=== PATIENT | female | born 1995 | race Caucasian/White ===

== ENCOUNTER 2020-05-30 21:48 | Inpatient (IN) ==
--- NOTE | 2020-05-30 23:11 | Anesthesiology Consultation ---
Date of Service May 30, 2020 Assessment & Plan (1) Encounter for pre-operative examination: Chart Review Chart Review: Acceptable Risk for Surgery and Patient NOT seen in Pre Admission Testing Consults Requested none History Surgery Operation Date: 05/30/20 23:30 Proposed Procedures p Section in LD - Danyelle Owen MD Height/Weight Height: 5 ft 6 in Weight: 89.811 kg Allergies Allergy/AdvReac Type Severity Reaction Status Date / Time No Known Allergies Allergy Verified 05/29/20 11:15 Medications Home Medications Medication Instructions Recorded Confirmed Last Taken prenat.vits,river,wsu-afnm-llwni 1 tab PO DAILY 11/12/19 05/30/20 05/30/20 07:00 levothyroxine 50 mcg tablet 50 mcg PO DAILY #30 tab 02/15/20 05/30/20 05/30/20 07:00 Past Medical History Medical History Abnormal Pap smear of cervix Hx of migraines Varicella vaccine Past Family History Family History Aunt Diabetes Family/Other Diabetes Grandmother (Paternal) Breast cancer Denies family history of Colon cancer Ovarian cancer Prostate cancer Myocardial infarction Past Surgical History Surgical History History of facial surgery Social History Smoking Status: Never smoker Hx Alcohol Use: No Hx Substance Use: No Physical Exam Vital Signs Last Vital Signs Temp 36.7 C 05/30/20 22:10 Pulse 87 05/30/20 22:03 Resp 18 05/30/20 22:10 BP 128/86 05/30/20 22:03
--- NOTE | 2020-05-30 23:14 | History & Physical Report ---
Date of Service May 30, 2020 Assessment & Plan (1) Breech presentation: 25 y/o G1 at 39 6/7 wga presenting with SROM and breech presentation -VSS -Fetus cat 1 -Breech presentation - was previously cephalic, discussed CS given malpresentation and SROM. -Discussed indications, risks, benefits, alternatives with risks including infection, bleeding, injury to adjacent structures (bowel, bladder, ureters, blood vessels, nerves, baby), possible need for blood transfusion and/or life saving hysterectomy, VTE. Consent reviewed in detail w/ pt and signed after all questions answered to her satisfaction. Anesthesia and peds team made aware. Rapid covid swab obtained History of Present Illness Chief Complaint: LOF Primary Care Provider: Ochoa Weaver, DO 25 y/o G1 at 39 6/7 wga w/ JORDIN 05/31 by LMP 08/24 who presents w/ c/o intermittent LOF. Had feeling of small amount of leaking, unsure if urine or water broke. Went to the bathroom and again had further leaking, this happened 4 more time and so presented for evaluation. +FM; rare ctx, no VB just dark bloody tinged mucous discharge after membrane sweep. 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 Hx: G1 Menarche 12 regular 28-30 day cycles Last pap 2018 neg cytology, hx abnl pap and +HPV, never needed colpo denies hx STI Allergies Allergy/AdvReac Type Severity Reaction Status Date / Time No Known Allergies Allergy Verified 05/29/20 11:15 Home Medications Medication Instructions Recorded Confirmed Type prenat.vits,river,hth-blid-lzcpu 1 tab PO DAILY 11/12/19 05/30/20 History levothyroxine 50 mcg tablet 50 mcg PO DAILY #30 tab 02/15/20 05/30/20 Rx Patient History Medical History Abnormal Pap smear of cervix Hx of migraines Varicella vaccine Surgical History History of facial surgery Family History Aunt Diabetes Family/Other Diabetes Grandmother (Paternal) Breast cancer Denies family history of Colon cancer Ovarian cancer Prostate cancer Myocardial infarction Social History Smoking Status: Never smoker Second Hand Exposure: No; Hx Alcohol Use: No Hx Substance Use: No Preferred Language: Dominican Communication Ability: Effective Visual Impairment: No Limitations Hearing Ability: Normal Tree Inspector Required: No Beliefs That Will Affect Care: None marital status: marital status details: Papa Jaeger (25) [phone] Current Living Situation: Spouse Current Living Situation Comment: lives with spouse, 3 dogs current occupational status: employed current occupation: [employer]- [employer] Other Information That Helps Us Care for You: No Feels Safe at Home: Yes Safety Concerns: Feels Safe At This Time Dental Care, Regularly: Yes Physical Activity Frequency: Does not Exercise Assistive Devices: None Physical Exam Constitutional: WD/WN, vitals as above Respiratory: normal respiratory effort; no respiratory distress and no labored breathing Genitourinary: OB Exam Abdomen: + breech (on SVE, confirmed by BSUS) Manual OB Exam: + cervical dilation 1 cm, + cervical effacement 50%, + station -2 and + amniotic fluid (+nitrazine, pooling, ferning) OB Exam Monitor Tracing: + external FHT monitor used, + external uterine monitor used (q6) and + category I (135/mod/+accel/-decel) Results & Data ([facility]) Vital Signs (Past 12 Hours) Vital Signs Temp Pulse Resp BP 05/30/20 22:10 98.1 F 18 05/30/20 22:03 87 128/86 Laboratory Results Initial OB Labs 10/25/19 Blood Type & RH - A postitive Antibody Screen negative HCT/HGB 37.3/12.4 Platelets 190 Pap Test --12/21 nl Chlamydia-negative Gonorrhea-negative Rubella- immune RPR-negative Urine Culture/Screen-negative HBsAg- non reactive HIV- non reactive MCV 89.2 UDS- negative hep c neg nonimmune to measles neg cf/sma--[facility] low risk panorama--[facility] 16 wee gtt 127 28 week gtt 121 GBS neg Diagnostic Findings Posterior placenta Code Status & VTE Plan VTE Prophylaxis Plan VTE Prophylaxis will be ordered: Yes Coding Level of Care Code None Diagnoses Breech presentation O32.1XX0
[2020-05-30] MEDS ORDERED: LACTATED RINGER'S 1,000 ML IV SCH (23:15)
[2020-05-30] MEDS ORDERED: CITRIC ACID/SODIUM CITRATE 15 ML UDC PO STA (23:15)
[2020-05-30] MEDS ORDERED: ceFAZolin 2000MG 2,000 MG/15 ML SYR IV STA (23:16)
[2020-05-30] MEDS ORDERED: MoRPHine SULFATE PF 1 MG/ML 10 ML AMP/VIAL ONE (23:17)
[2020-05-30] MEDS ORDERED: OXYTOCIN 10 UNITS/ML VIAL ONE (23:17)
[2020-05-30] MEDS ORDERED: ONDANSETRON INJ 2 MG/ML 2 ML VIAL ONE (23:17)
[2020-05-30] MEDS ORDERED: SODIUM CHLORIDE 0.9% INJ 10 ML VIAL ONE (23:17)
[2020-05-30] MEDS ORDERED: fentaNYL citrate 100 MCG/2 ML VIAL ONE (23:18)
[2020-05-30 23:25] LABS: Basophils # (auto) 0.01 K/uL (0-0.2); Basophils % (auto) 0.1 %; Eosinophils # (auto) 0.01 K/uL (0-0.5); Eosinophils % (auto) 0.1 %; Hematocrit (blood only) 32.4 % (37-47); Hemoglobin 11.1 g/dL (12.0-16.0); Immature Granulocytes # (auto) 0.03 K/uL (0.00-0.02); Immature Granulocytes % (auto) 0.2 %; Lymphocytes # (auto) 2.47 K/uL (1.2-3.4); Lymphocytes % (auto) 20.5 %; Mean Corpuscular Hemoglobin 30.2 pg (25-34); Mean Corpuscular Hgb Conc 34.3 g/dL (32-36); Mean Corpuscular Volume 88.3 fL (80-100); Mean Platelet Volume 11.9 fL (7.4-10.4); Monocytes # (auto) 0.75 K/uL (0.11-0.59); Monocytes % (auto) 6.2 %; Neutrophils # (auto) 8.77 K/uL (1.4-6.5); Neutrophils % (auto) 72.9 %; Platelet Count 162 K/uL (130-400); RDW Coefficient of Variation 13.9 % (11.5-14.5); RDW Standard Deviation 45.3 fL (36.4-46.3); Red Blood Count 3.67 M/uL (4.2-5.4); White Blood Count 12.04 K/uL (4.8-10.8)
[2020-05-30] MEDS ORDERED: ACETAMINOPHEN 1000 MG/100 ML IV IV PRN (23:52)
[2020-05-31] MEDS ORDERED: ONDANSETRON INJ 2 MG/ML 2 ML VIAL IV PRN ×2 (00:40→18:40)
[2020-05-31] MEDS ORDERED: NALOXONE HCL 0.4 MG/1 ML VIAL/CARP IV PRN (00:40)
[2020-05-31] MEDS ORDERED: HYDROmorphone INJ 0.5 MG/0.5 ML SYR IV PRN (00:40)
[2020-05-31] MEDS ORDERED: ePHEDrine sulfate 50 MG/ML AMP IV PRN (00:40)
[2020-05-31] MEDS ORDERED: MoRPHine SULFATE PF 1 MG/ML 10 ML AMP/VIAL INT SPINAL ONE (00:40)
[2020-05-31] MEDS ORDERED: KETOROLAC 30 MG/ML VIAL IV PRN ×2 (00:40→18:40)
[2020-05-31] MEDS ORDERED: PROMETHAZINE HCL 25 MG in SODIUM CHLORIDE 0.9% 50 ML IV PRN ×2 (00:40→18:40)
[2020-05-31] MEDS ORDERED: NALOXONE HCL 0.08 MG in SYRINGE 1.8 ML IV PRN (00:40)
[2020-05-31] MEDS ORDERED: LACTATED RINGER'S 500 ML IV PRN (00:40)
[2020-05-31] MEDS ORDERED: NALOXONE HCL 1 MG in SODIUM CHLORIDE 0.9% 1000ML 1,000 ML IV PRN (00:40)
[2020-05-31] MEDS ORDERED: diphenhydrAMINE 50 MG/ML VIAL IV PRN ×2 (00:40→18:40)
[2020-05-31] MEDS ORDERED: NO NARCOTICS OR SEDATIVES SCH (00:45)
[2020-05-31] MEDS ORDERED: DC INTRASPINAL MORPHINE SCH (00:45)
[2020-05-31] MEDS ORDERED: SODIUM CHLORIDE 0.9% 1000ML 1,000 ML IV SCH (00:45)
[2020-05-31] MEDS ORDERED: KETOROLAC 30 MG/ML VIAL ONE (01:26)
[2020-05-31] MEDS ORDERED: diphenhydrAMINE 50 MG/ML VIAL ONE (01:41)
[2020-05-31 02:03] LABS: Base Excess Cord Arterial Bld -0.1 mEq/L (-9-1.8); CO2 Cord Arterial Blood 68 mmHg (39.1-73.5); HCO3 Cord Arterial Blood 29 mmol/L (19.7-28.5); PO2 Cord Arterial Blood 19 mmHg (4.1-31.7); pH Cord Arterial Blood 7.25 (7.1-7.38)
[2020-05-31 02:04] LABS: Base Excess Cord Venous Blood -1.7 mEq/L (-7.7-1.9); Cord Venous Blood HCO3 28 mmol/L (18.4-26.8); Cord Venous Blood PCO2 68 mmHg (30.4-57.2); Cord Venous Blood PO2 26 mmHg (14.1-43.3); Cord Venous Blood pH 7.23 (7.20-7.44); Oxygen Sat Cord Arterial Blood < 60.0 % (<60)
[2020-05-31 02:06] LABS: O2 Saturation Cord Venous Bld < 60.0 % (<68)
--- NOTE | 2020-05-31 02:52 | Post Operative Brief Note ---
PG Immediate Post Op with CF Date of Surgery May 31, 2020 Pre & Post Diagnosis Operation Date: 05/30/20 23:30 Pre-Op Diagnosis: 1. Single IUP at 40 weeks gestation 2. SROM 3. Breech Presentation Post-Op Diagnosis: same as pre op diagnosis Delivered live female child at 0117 I identified the patient and participated in the time-out.: Yes Procedure Operation Date: 05/30/20 23:30 Actual Procedures p Primary Low Transverse Section in LD(Not Applicable) - Danyelle Owen MD Surgeon Danyelle Owen MD Pyrotechnic Mixer SINDY Mcdaniels Estimated Blood Loss 800 Findings Consistent with Post-Op Diagnosis Normal appearing uterus, bilateral fallopian tubes, and ovaries. Left extension noted on the hysterotomy. Everette applied prior to closure. Viable female infant weighing 7lbs 10oz w/ APGARS of 8 and 9 at 1 and 5 minutes, respectively. Fluids 800cc crystalloid 700cc UOP clear urine Specimens Specimen Description: placenta-hold cord gases cord blood Drains Cash Catheter (inserted after spinal block without difficulty) Anesthesia Type Spinal Complications none
--- NOTE | 2020-05-31 02:55 | Anesthesiology Progress Note ---
Date of Service May 31, 2020 Anesthesia Post Procedure Vital Signs Vital Signs: Temp Pulse Resp BP Pulse Ox 05/31/20 02:54 69 100 05/31/20 02:51 67 93/52 L 05/31/20 02:49 68 98 05/31/20 02:44 67 99 05/31/20 02:41 75 94 05/31/20 02:40 68 111/62 05/31/20 02:39 74 100 05/30/20 22:10 36.7 C 18 05/30/20 22:03 87 128/86 Transfer of Care Handoff Completed per policy Notes Mental Status: alert / awake / arousable and participated in evaluation Nausea / Vomiting: adequately controlled Pain: adequately controlled Airway Patency, RR, SpO2: stable & adequate BP & HR: stable & adequate Hydration State: stable & adequate Neuraxial Anesthesia: was administered and sensory block is resolving Anesthetic Complications: no major complications apparent and Pt Satisfied with anesthetic care
--- NOTE | 2020-05-31 03:03 | Operative Report ---
PG Post Operative Report Pre & Post Diagnosis Operation Date: 05/30/20 23:30 Pre-Op Diagnosis: 1. Single IUP at 40 weeks gestation 2. SROM 3. Breech Presentation Post-Op Diagnosis: same as pre op diagnosis Delivered live female child at 0117 I identified the patient and participated in the time-out.: Yes Procedure Operation Date: 05/30/20 23:30 Actual Procedures p Primary Low Transverse Section in LD(Not Applicable) - Danyelle Owen MD Surgeon Danyelle Owen MD Cigar Head Puncher SINDY Mcdaniels Estimated Blood Loss 800 Findings Consistent with Post-Op Diagnosis Normal appearing uterus, bilateral fallopian tubes, and ovaries. Left extension noted on the hysterotomy, Everette applied prior to closure. Viable female weighing 7lbs 10oz w/ APGARS of 8 and 9 at 1 and 5 minutes, respectively Fluids 800cc crystalloid 700cc UOP clear urine Specimens placenta-hold cord gases cord blood Drains Cash draining clear urine Anesthesia Type Spinal Complications none Disposition Accompanied Patient To Recovery: Yes Disposition: L&D Indications 25 y/o G1 at 39 6/7 wga w/ JORDIN 05/31 by LMP 08/24 who presents w/ c/o intermittent LOF. She was found to have undergone spontaneous rupture of membranes. On SVE, she was 1.5/50/-2 however presenting part was not felt to be cephalic. BSUS confirmed breech positioning. She was counseled regarding need for delivery due to malpresentation and was in agreement with plan. Consent was extensively reviewed with patient and signed after all questions answered. Breech presentation was again confirmed prior to going to OR. Category 1 tracing was obtained on admission. Description of Procedure The patient was taken to the operating room after consents were ensured. The patient was properly identified. Spinal anesthesia was obtained without difficulty. The patient was placed in a dorsal supine position with left lateral tilt, then prepped and draped in normal sterile fashion. Surgical time out was performed. Antibiotics were given for prophylaxis. Anesthesia was tested to ensure adequate surgical levels. Pfannenstiel skin incision was performed and carried down to the underlying fascia with a knife. The fascia was then nicked in the midline and extended laterally with pickfarida and Olson scissors. Superior portion of the fascia was grasped with Kochers x2 and elevated off the underlying rectus muscles using blunt dissection. Inferior portion of the fascia was then grasped with Padma clamps x2 and also elevated off the underlying muscles with blunt dissection. Midline was identified. The peritoneum was then entered and extended to provide adequate room for delivery of baby. A hand was inserted into the abdomen, uterus was noted to be clear of adhesions. Bladder blade was inserted, bladder flap was created in the usual fashion. A low transverse uterine incision was made in the uterus and extended bluntly in a superior to inferior fashion. breech was grasped and elevated through the hysterotomy in an atraumatic fashion. hips were swept through and delivered atraumatically using the pinard maneuver. Moist blue towel was wrapped around the torso and delivered to the level of the scapula. Right and left arms were swept across the chest to deliver and aftercoming head subsequently delivered spontaneously and without difficulty. Nose and mouth were bulb suctioned on the surgical field. Delayed cord clamping x 30 seconds. The cord was double clamped and cut, baby was handed off to awaiting pediatrics staff. Cord segment and blood were obtained. Placenta was then expressed from the uterus. The uterus was exteriorized. Several passes were made inside the uterus to remove the remaining membranes. Attention was then turned to the hysterotomy where a left sided extension was noted going inferiorly, which was then closed with a running locked suture of 0 Vicryl on a CTX needle in two segments and incorporated together. An imbricating layer was then performed using 0-Monocryl. Areas of continued bleeding around the hysterotomy were made hemostatic with figure of eight stitches using 0-Monocryl. There was noted to be good hemostasis. The posterior cul-de-sac was then inspected and cleaned of clot and debris. The hysterotomy was again inspected and noted to be hemostatic. The uterus was returned to the abdomen. The right and left pericolic gutters were cleaned of all clot and debris. The hysterotomy was again noted to be hemostatic. Space of Retzius was noted to be hemostatic. Everette was applied to the hysterotomy. The fascia was then closed with a running suture of 0 Vicryl on a CT1 needle. Subcutaneous tissue was copiously irrigated and noted to be hemostatic. Subcutaneous tissue was re-approximated using 2-0 plain gut. The skin was then closed with a running suture of 3-0 Monocryl in a subcuticular fashion from each end and tied in the middle. At termination of the procedure, the fundal pressure was applied and a moderate amount of lochia was expressed. Pressure dressing was applied to the patient. She tolerated the procedure well. All sponge, needle, instrument counts were correct x 2. I attest to the content of the Intraoperative Record and any orders documented therein. Any exceptions are noted below. OB Procedure charges OB Charges 00828 C/S
[2020-05-31] MEDS ORDERED: MAGNESIUM HYDROXIDE SUSP 30 ML UDC PO PRN (03:05)
[2020-05-31] MEDS ORDERED: LACTATED RINGER'S 1,000 ML IV SCH (03:05)
[2020-05-31] MEDS ORDERED: BENZOCAINE 20% AER SPR 82.5 GM CAN EXT PRN (03:05)
[2020-05-31] MEDS ORDERED: SUPERCREAM 0.870% 15 GM JAR EXT PRN (03:05)
[2020-05-31] MEDS ORDERED: HYDROCORTISONE ACETATE 25 MG SUPP PR PRN (03:05)
[2020-05-31] MEDS ORDERED: DIPHTHERIA/TETANUS/PERTUSSIS 0.5 ML SYR/VIAL IM ONE (03:05)
[2020-05-31] MEDS ORDERED: SENNA 8.6 MG TAB PO PRN (03:05)
[2020-05-31] MEDS ORDERED: MEASLES, MUMPS & RUBELLA VIRUS VIAL SQ ONE (03:05)
[2020-05-31] MEDS ORDERED: OXYTOCIN 20 UNITS in LACTATED RINGER'S 1,000 ML IV SCH (03:05)
[2020-05-31] MEDS: LEVOTHYROXINE SODIUM 50 MCG TABLET PO SCH (06:41)
[2020-05-31] MEDS: FERROUS SULFATE 325 MG TAB PO SCH (08:36)
[2020-05-31] MEDS: PRENATAL VITAMIN 1 TAB PO SCH (08:36)
[2020-05-31] MEDS: DOCUSATE SODIUM 100 MG CAP PO SCH ×2 (08:36→20:13)
[2020-05-31] MEDS: SIMETHICONE 80 MG CHEW PO SCH ×4 (08:36→20:13)
--- NOTE | 2020-05-31 12:18 | Anesthesiology Progress Note ---
Date of Service May 31, 2020 Anesthesia Post Procedure Vital Signs Vital Signs: Temp Pulse Pulse Resp BP BP Pulse Ox 05/31/20 12:00 18 95 05/31/20 11:15 18 95 05/31/20 10:15 18 96 05/31/20 09:15 18 98 05/31/20 08:15 18 99 05/31/20 07:42 37.4 C 88 18 107/69 99 05/31/20 07:15 18 98 05/31/20 06:30 18 98 05/31/20 05:30 16 98 05/31/20 05:24 75 99 05/31/20 05:20 36.5 C 76 16 117/75 98 05/31/20 05:19 77 99 05/31/20 05:14 77 99 05/31/20 05:11 75 114/71 05/31/20 05:09 78 99 05/31/20 05:04 77 99 05/31/20 05:00 37.0 C 18 05/31/20 04:59 80 99 05/31/20 04:54 90 99 05/31/20 04:49 79 97 05/31/20 04:44 78 99 05/31/20 04:40 81 121/67 05/31/20 04:39 74 96 05/31/20 04:34 74 99 05/31/20 04:30 18 99 05/31/20 04:29 76 115/73 98 05/31/20 04:24 73 99 05/31/20 04:19 74 111/72 96 05/31/20 04:14 68 99 05/31/20 04:11 18 05/31/20 04:09 67 110/78 99 05/31/20 04:05 69 90 05/31/20 04:04 71 97 05/31/20 03:59 66 108/65 99 05/31/20 03:55 18 05/31/20 03:54 70 98 05/31/20 03:49 71 100 05/31/20 03:45 18 05/31/20 03:44 74 100 05/31/20 03:39 77 119/62 100 05/31/20 03:35 18 05/31/20 03:34 73 97 05/31/20 03:33 63 105/68 05/31/20 03:30 18 05/31/20 03:29 70 99 05/31/20 03:25 18 05/31/20 03:24 67 100 05/31/20 03:23 68 94 05/31/20 03:19 69 114/66 99 05/31/20 03:15 18 100 05/31/20 03:14 68 100 05/31/20 03:13 65 118/75 05/31/20 03:09 67 100 05/31/20 03:05 18 100 05/31/20 03:04 72 100 05/31/20 03:01 70 140/60 05/31/20 02:59 79 91 05/31/20 02:55 18 100 05/31/20 02:54 69 100 05/31/20 02:51 67 93/52 L 05/31/20 02:49 68 98 05/31/20 02:45 18 100 05/31/20 02:44 67 99 05/31/20 02:41 75 94 05/31/20 02:40 68 111/62 05/31/20 02:39 74 100 05/31/20 02:37 36.4 C L 18 100 05/30/20 22:10 36.7 C 18 05/30/20 22:03 87 128/86 Notes Mental Status: alert / awake / arousable Patient Amnestic to Procedure: Yes Nausea / Vomiting: adequately controlled Pain: adequately controlled Airway Patency, RR, SpO2: stable & adequate BP & HR: stable & adequate Hydration State: stable & adequate Anesthetic Complications: no major complications apparent and Pt Satisfied with anesthetic care
[2020-05-31] MEDS ORDERED: diphenhydrAMINE Capsule 25 MG CAP PO PRN (18:40)
[2020-05-31] MEDS: IBUPROFEN 600 MG TAB PO PRN (20:13)
[2020-05-31] MEDS: oxyCODONE/ACETAMINOPHEN 5mg/325mg TAB PO PRN (20:14)
[2020-06-01] MEDS: IBUPROFEN 600 MG TAB PO PRN ×4 (01:57→21:19)
[2020-06-01] MEDS: oxyCODONE/ACETAMINOPHEN 5mg/325mg TAB PO PRN ×2 (01:57→14:40)
[2020-06-01] MEDS: LEVOTHYROXINE SODIUM 50 MCG TABLET PO SCH (06:12)
[2020-06-01 06:33] LABS: Basophils # (auto) 0.01 K/uL (0-0.2); Basophils % (auto) 0.1 %; Eosinophils # (auto) 0.04 K/uL (0-0.5); Eosinophils % (auto) 0.4 %; Hematocrit (blood only) 26.8 % (37-47); Hemoglobin 9.1 g/dL (12.0-16.0); Immature Granulocytes # (auto) 0.03 K/uL (0.00-0.02); Immature Granulocytes % (auto) 0.3 %; Lymphocytes # (auto) 1.95 K/uL (1.2-3.4); Mean Corpuscular Hemoglobin 30.3 pg (25-34); Mean Corpuscular Volume 89.3 fL (80-100); Mean Platelet Volume 11.5 fL (7.4-10.4); Monocytes # (auto) 0.71 K/uL (0.11-0.59); Monocytes % (auto) 6.5 %; Neutrophils % (auto) 74.7 %; Platelet Count 121 K/uL (130-400); RDW Coefficient of Variation 14.1 % (11.5-14.5); RDW Standard Deviation 46.6 fL (36.4-46.3); White Blood Count 10.84 K/uL (4.8-10.8)
[2020-06-01] MEDS: DOCUSATE SODIUM 100 MG CAP PO SCH ×2 (08:56→21:20)
[2020-06-01] MEDS: FERROUS SULFATE 325 MG TAB PO SCH (08:56)
[2020-06-01] MEDS: PRENATAL VITAMIN 1 TAB PO SCH (08:56)
[2020-06-01] MEDS: SIMETHICONE 80 MG CHEW PO SCH ×4 (08:57→21:20)
--- NOTE | 2020-06-01 09:19 | Obstetrical Progress Note ---
Date of Service June 01, 2020 Assessment & Plan (1) Breech presentation: Patient is POD#1 from C/S for breech presentation and recovering normally from a surgical standpoint. Discussed today feelings of sadness about the delivery not being what she had planned, and difficulty adjusting to her current reality. She was hoping for natural vaginal delivery, had a vertex baby and underwent membrane stripping with hopes of going into labor; an uncomfortable episode the night after her membranes were stripped could correlate with baby repositioning, as when the patient came to L&D she had to undergo for breech - which was not what she had mentally prepared for. She is glad that baby is healthy, and she is not having issues with unmanaged pain or surgical complications, but is describing some sense of loss of control and some detachment. Validated her feelings of frustration, discussed baby blues, the normal challenges of new motherhood plus surgical recovery, and warning signs of depression and/or psychosis for which she is higher risk given her current feelings. She currently has no SI/HI and has a good social support system and good insight about her mental state. Reminded her of availability of care through our office should any concerns about mood arise after her eventual discharge from the hospital. Subjective Ambulation: ambulating normally Voiding: no voiding problems Passing Gas:: Yes Diet Tolerance:: regular diet Lochia:: Small Feeding Type:: breast feeding Physical Exam Constitutional WD/WN, vitals as above Eyes PERRL, conjunctivae normal, anicteric sclerae Neck normal visual inspection Respiratory normal respiratory effort and able to speak in complete sentences; no respiratory distress and no labored breathing Cardiovascular Rate/Rhythm: regular rate and regular rhythm Extremities: no edema Chest (Breasts) Chest: normal inspection of chest Gastrointestinal (Abdomen) Inspection/Auscultation: abdomen normal to inspection and + abdominal surgical incision (c/d/i) Soft, postgravid Psychiatric A+Ox3, euthymic affect Genitourinary OB Exam Abdomen: + fundal height Fundus: + firm and + relation to umbilicus (fundus just below umbilicus); not tender Results & Data ([facility]) Vital Signs (Past 12 Hours) Vital Signs Temp Pulse Resp BP Pulse Ox 05/31/20 23:45 98.8 F 86 16 115/72 96
[2020-06-01] MEDS ORDERED: bisacodyL 5 MG TABEC PO SCH (20:00)
[2020-06-02] MEDS ORDERED: bisacodyL 10 MG SUPP PR PRN (02:46)
[2020-06-02] MEDS: IBUPROFEN 600 MG TAB PO PRN ×3 (03:51→14:50)
--- NOTE | 2020-06-02 05:13 | Obstetrical Progress Note ---
Date of Service June 02, 2020 Assessment & Plan (1) : S/p LTCS for breech presentation, Day 2 - Feels well today. Eating well, voiding well, ambulating well. - Pain well-controlled with ibuprofen 600mg Q4H PRN. - Vital signs reviewed and WNL. - Hemoglobin reviewed. 11.1 --> 9.1 --> 9.0 (today). - Blood Type: A+, antibody negative, GBS negative, Rubella Immune, COVID-19 negative - Continue routine post-op care: encourage ambulation, monitor and control pain with Motrin PRN, continue regular OB diet, monitor lochia - Encourage breast feeding. - Pt counselled on discharge instructions - After discharge, will have 6-wk follow-up with Owen Admission and Anticipated Discharge Date Admission Date: May 30, 2020 Supervising Physician Co-Signing Physician Notes Resident Physician Supervision Note: I interviewed and examined the patient. Discussed with Dr. Jean and agree with findings and plan as documented in the note. Any exceptions or clarifications are listed here: Patient mood markedly improved this morning; she is smiling, successfully when I entered the room, and reports feeling much better physically and emotionally now that she has gotten a good night of sleep. Documented By: Bibi Ortiz MD, FACOG Subjective HPI Debbie Jaeger is a 25 y/o female who is POD #2 following delivery for breech presentation at 40 weeks. She reports feeling well overall this morning. mild abdominal cramping and 0-2/10 pain well managed on analgesics. Voiding. Tolerating meals overnight without difficulty. Patient has been able to ambulate some. passing gas and had bowel movement. Has persistent lochia with some improvement this morning. Currently . Review of Systems Review of Systems: ROS Denies fever or chills. Denies shortness of breath or cough. Denies chest pain. Denies breast pain. Denies dysuria. Denies leg pain or leg swelling. Denies headache or changes in vision. Physical Exam Physical Exam: PE General: Alert, oriented. No acute distress. Cardiac: Regular rate and rhythm. No murmurs. Respiratory: Clear to auscultation bilaterally a/p, no wheezes/rales/rhonchi. No increased work of breathing. Symmetrical chest rise. No respiratory distress. Abdomen: Soft, nontender, nondistended. Bowel sounds present. Uterus: Uterine fundus firm, palpable 1 cm below umbilicus. Surgical scar clean and healing well. Lower Extremities: No lower extremity edema or swelling. No deep calf pain. Iman's negative bilaterally. Results & Data ([facility]) Vital Signs (Past 12 Hours) Vital Signs Temp Pulse Resp BP Pulse Ox 06/02/20 00:05 36.9 C 78 16 109/76 98 06/01/20 21:10 37.1 C 91 H 16 121/83 98 Resident Activity Tracking Resident Involvement: Resident Care Provided Care Provided: Adult Hospital Medicine
[2020-06-02] MEDS: LEVOTHYROXINE SODIUM 50 MCG TABLET PO SCH (06:09)
[2020-06-02 06:12] LABS: Hematocrit (blood only) 26.9 % (37-47); Mean Corpuscular Hemoglobin 30.1 pg (25-34); Mean Corpuscular Hgb Conc 33.5 g/dL (32-36); Mean Platelet Volume 11.5 fL (7.4-10.4); Platelet Count 135 K/uL (130-400); RDW Coefficient of Variation 14.3 % (11.5-14.5); RDW Standard Deviation 46.9 fL (36.4-46.3); Red Blood Count 2.99 M/uL (4.2-5.4); White Blood Count 10.67 K/uL (4.8-10.8)
[2020-06-02] MEDS: SIMETHICONE 80 MG CHEW PO SCH ×2 (08:37→11:53)
[2020-06-02] MEDS: PRENATAL VITAMIN 1 TAB PO SCH (08:38)
[2020-06-02] MEDS: FERROUS SULFATE 325 MG TAB PO SCH (08:38)
[2020-06-02] MEDS: DOCUSATE SODIUM 100 MG CAP PO SCH (08:38)
--- NOTE | 2020-06-04 07:29 | Discharge Summary ---
Date of Service June 04, 2020 Admission HPI Per Admitting Provider 25 y/o G1 at 39 6/7 wga w/ JORDIN 05/31 by LMP 08/24 who presents w/ c/o intermittent LOF. Had feeling of small amount of leaking, unsure if urine or water broke. Went to the bathroom and again had further leaking, this happened 4 more time and so presented for evaluation. +FM; rare ctx, no VB just dark bloody tinged mucous discharge after membrane sweep. PNI: Hypothyroid Past SEARCH ADVERTISING STRATEGIST Hx: G1 Menarche 12 regular 28-30 day cycles Last pap 2018 neg cytology, hx abnl pap and +HPV, never needed colpo denies hx STI Admission Exam (Per Admitting) Constitutional WD/WN, vitals as above Respiratory normal respiratory effort; no respiratory distress and no labored breathing Genitourinary OB Exam Abdomen: + breech (on SVE, confirmed by BSUS) Manual OB Exam: + cervical dilation + 1 cm, + cervical effacement + 50%, + station + -2 and + amniotic fluid (+nitrazine, pooling, ferning) OB Exam Monitor Tracing: + external FHT monitor used, + external uterine monitor used (q6) and + category I (135/mod/+accel/-decel) Discharge Data Consultations 05/30/20 23:04 Consult Anesthesiology Stat Procedures Performed Operation Date: 05/30/20 23:30 Actual Procedures p Primary Section in LD of a live female child at 0117(Not Applicable) - Danyelle Owen MD Hospital Course (1) S/P : Pt was found to be breech on admission and counseled regarding need for delivery. Pt underwent the above listed procedure, see operative report for details. She did well from a surgical standpoint in the period and was stable for discharge on POD2. Coding Level of Care Code None Diagnoses S/P Z98.891
== END 2020-06-02 16:35 | disposition home or self-care (01) | DRG 788 ==
LOC: OPB 21:48 → 4S1 21:49 → 4S2 05-31 05:48

== ENCOUNTER 2024-02-10 05:30 | Inpatient (IN) ==
--- NOTE | 2024-02-02 11:45 | Anesthesiology Consultation ---
Date of Service February 02, 2024 Assessment & Plan (1) Encounter for pre-operative examination: Chart Review Chart Review: pocket and pulley machine operator initiated Planning for but has scheduled per OB records -Infectious Disease screening: Per PAT nursing assessment on 02/02/24. No known infectious disease contacts in past 10 days or current infectious disease symptoms. No recent travel outside the country. History Surgery Operation Date: 02/10/24 07:30 Proposed Procedures p Section (Delivery Baby Through Abdominal Incision) - Danyelle Owen MD Height/Weight Height: 5 ft 6 in Weight: 93.44 kg Allergies Allergy/AdvReac Type Severity Reaction Status Date / Time No Known Allergies Allergy Verified 02/02/24 11:17 Medications Home Medications Medication Instructions Recorded Confirmed Last Taken prenat.vits,river,bvt-xblw-eeoje 1 tab PO QAM 06/21/23 02/02/24 Unknown ferrous sulfate 325 mg (65 mg 325 mg PO Q2D 02/02/24 02/02/24 Unknown iron) tablet levothyroxine 75 mcg tablet 75 mcg PO QAM 02/02/24 02/02/24 Unknown Past Medical History Medical History (Updated 02/02/24 @ 11:49 by Rianna Boo PA-C) Abnormal Pap smear of cervix hx - ~ no problems since. Hx of migraines Hypothyroidism Past Family History Family History Aunt Diabetes Family/Other Diabetes Grandmother (Paternal) Breast cancer Other No family history of adverse response to anesthesia Denies family history of Colon cancer Ovarian cancer Prostate cancer Myocardial infarction Past Surgical History Surgical History H/O laceration repair lip - as a child from a dog bite H/O removal of cyst from her face S/P x1 in 2020 due to breech presentation Social History Smoking Status: Never smoker Do You Dip or Chew Tobacco: No Hx Alcohol Use: Yes (rare alcohol use when not ) alcohol intake frequency: holidays/special occasions only Hx Substance Use: No Lab Results Anesthesia Preop Results Results Anesthesia Widget: TSH 2.690 uIU/mL (0.30-4.50) 12/06/23
--- NOTE | 2024-02-09 13:06 | History & Physical Report ---
Date of Service February 09, 2024 Assessment & Plan (1) Encounter for pre-operative examination: (2) History of delivery affecting : Plan 29 yo at 40+ wks presents for preop to CS VSS NST reactive Discussed indications, risks, benefits, alternatives with risks including infection, bleeding, injury to adjacent structures (bowel, bladder, ureters, blood vessels, nerves, baby), possible need for blood transfusion and/or life saving hysterectomy, VTE. Consent reviewed in detail w/ pt and signed after all questions answered to her satisfaction. History of Present Illness Chief Complaint: preop Primary Care Provider: Yesenia Davidson 29 yo at 40 3/7 w[facility] presents for preop to planned repeat CS. 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 Hx of migraines Hypothyroidism Surgical History H/O laceration repair lip - as a child from a dog bite H/O removal of cyst from her face S/P x1 in 2020 due to breech presentation Family History Aunt Diabetes Family/Other Diabetes Grandmother (Paternal) Breast cancer Other No family history of adverse response to anesthesia Denies family history of Colon cancer Ovarian cancer Prostate cancer Myocardial infarction Social History (Updated 06/21/23 @ 09:58 by Mary Ann J Knepp) Smoking Status: Never smoker Second Hand Exposure: No; Do You Dip or Chew Tobacco: No; Tobacco Cessation Education Requested by Patient: No Hx Alcohol Use: No Hx Substance Use: No Preferred Language: Czech Communication Ability: Effective Visual Impairment: No Limitations Hearing Ability: Normal Green Ware Caster Required: No Beliefs That Will Affect Care: None marital status: marital status details: Papa Jaeger (29) [phone] Current Living Situation: Family Current Living Situation Comment: lives with spouse, daughter, 3 dogs. 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 How many Children do You have: 1 Other Information That Helps Us Care for You: No Feels Safe at Home: Yes Safety Concerns: Feels Safe At This Time Childhood Exposure to Second-Hand Smoke: No Diet: regular caffeine: Yes during the past year weight has: increased > 10 lbs Dental Care, Regularly: Yes Physical Activity Frequency: Daily Seatbelt Use: always Sunscreen Use: Yes Assistive Devices: Contacts and Glasses Physical Exam Constitutional: WD/WN, vitals as above Respiratory: normal respiratory effort, lungs clear to auscultation Cardiovascular: RRR, no murmur, no edema Results & Data Laboratory Results OB Labs: Blood Type A Positive 06/28/23 Antibody Screen NEGATIVE 06/28/23 Hgb 10.8 g/dl (12.0-16.0) L 11/14/23 Hct 33.3 % (37.0-47.0) L 11/14/23 MCV 85.6 fL (80.0-100.0) 06/28/23 Plt Count 208 K/uL (130-400) 06/28/23 Rubella IgG Antibody Immune (Immune) 06/28/23 RPR Nonreactive (Nonreactive) 06/28/23 Treponema pallidum Ab Negative (Negative) 11/14/23 Hep Bs Antigen NON-REACTIVE (NON-REACTIVE) 06/28/23 Hepatitis C Ab (EIA) NON-REACTIVE (NON-REACTIVE) 06/28/23 HIV (1&2) Ag & Ab Conf NON-REACTIVE (NON-REACTIVE) 06/28/23 Glucose 1 Hr 50 gm 120 mg/dl (70-130) 11/14/23 OB Optional Labs: Chlamydia trachomatis RNA Not Detected (NotDetected) 06/28/23 Neisseria gonorrhoeae RNA Not Detected (NotDetected) 06/28/23 Thyroid Stimulating Hormone (TSH) 2.690 uIU/mL (0.30-4.50) 12/06/23 Labs Reviewed: neg cf/sma in prior --akh Declines cfdna/quad screen--mln GBS neg Diagnostic Findings Posterior placenta Coding Level of Care Code None Diagnoses Encounter for pre-operative examination Z01.818 History of delivery affecting O34.219
[2024-02-10] MEDS: ACETAMINOPHEN 500 MG TAB PO SCH (05:57)
[2024-02-10 06:36] LABS: Hematocrit (blood only) 32.4 % (37.0-47.0); Hemoglobin 10.8 g/dl (12.0-16.0); Mean Corpuscular Hgb Conc 33.3 g/dL (32.0-36.0); Mean Corpuscular Volume 87.1 fL (80.0-100.0); Mean Platelet Volume 12.2 fL (9.4-12.4); Platelet Count 164 K/uL (130-400); RDW Coefficient of Variation 13.8 % (11.5-14.5); RDW Standard Deviation 43.7 fL (36.4-46.3); Red Blood Count 3.72 M/uL (4.20-5.40); White Blood Count 10.69 K/ul (4.8-10.8)
[2024-02-10] MEDS ORDERED: MoRPHine SULFATE PF 1 MG/ML 10 ML AMP/VIAL ONE (07:11)
[2024-02-10] MEDS ORDERED: DEXAMETHASONE SOD INJ 4 MG/ML VIAL ONE (07:11)
[2024-02-10] MEDS ORDERED: fentaNYL citrate PF 100 MCG/2 ML VIAL ONE (07:11)
[2024-02-10] MEDS ORDERED: KETOROLAC 30 MG/ML VIAL ONE (07:11)
[2024-02-10] MEDS ORDERED: ONDANSETRON INJ 2 MG/ML 2 ML VIAL ONE (07:11)
[2024-02-10] MEDS ORDERED: OXYTOCIN 10 UNITS/ML VIAL ONE (07:11)
[2024-02-10] MEDS: CITRIC ACID/SODIUM CITRATE 15 ML UDC PO SCH (07:12)
[2024-02-10] MEDS: LACTATED RINGER'S 1,000 ML IV SCH (07:12)
--- NOTE | 2024-02-10 07:22 | History & Physical Bridge Note ---
Date of Service February 10, 2024 History & Physical Bridge Note I have examined the patient, reviewed the History & Physical and in the interval since the performance of the History & Physical I have noted the following changes of clinical significance: no changes noted
[2024-02-10] MEDS: ceFAZolin 2000MG 2,000 MG/15 ML SYR IV SCH (07:31)
[2024-02-10] MEDS ORDERED: PROMETHAZINE 6.25 MG/50.25 ML BAG IV PRN (08:28)
[2024-02-10] MEDS ORDERED: NALOXONE HCL 0.4 MG/1 ML VIAL/CARP IV PRN (08:28)
[2024-02-10] MEDS ORDERED: NALBUPHINE HCL INJ 10 MG/ML AMP IV PRN (08:28)
[2024-02-10] MEDS ORDERED: MEPERIDINE HCL 25 MG/ML CARP/VIAL IV PRN (08:28)
[2024-02-10] MEDS ORDERED: HYDROmorphone INJ 0.5 MG/0.5 ML SYR IV PRN (08:28)
[2024-02-10] MEDS ORDERED: diphenhydrAMINE Capsule 25 MG CAP PO PRN (08:28)
[2024-02-10] MEDS ORDERED: ePHEDrine sulfate 50 MG/ML AMP IV PRN (08:28)
[2024-02-10] MEDS ORDERED: NALOXONE HCL 0.08 MG in SYRINGE 1.8 ML IV PRN (08:28)
[2024-02-10] MEDS ORDERED: METOCLOPRAMIDE HCL 20 MG in SODIUM CHLORIDE 0.9% 50 ML IV PRN (08:28)
[2024-02-10] MEDS ORDERED: diphenhydrAMINE 50 MG/ML VIAL IV PRN (08:28)
[2024-02-10] MEDS ORDERED: NALOXONE HCL 1 MG in SODIUM CHLORIDE 0.9% 1,000 ML IV PRN (08:28)
[2024-02-10] MEDS ORDERED: ONDANSETRON INJ 2 MG/ML 2 ML VIAL IV PRN (08:28)
[2024-02-10] MEDS ORDERED: DC INTRASPINAL MORPHINE SCH (08:30)
[2024-02-10] MEDS ORDERED: NO NARCOTICS OR SEDATIVES SCH (08:30)
[2024-02-10] MEDS ORDERED: PHENYLEPHRINE HCL 25 MG/250 ML NSS IV ONE (09:14)
[2024-02-10] MEDS: KETOROLAC 30 MG/ML VIAL IV SCH (09:15)
--- NOTE | 2024-02-10 09:32 | Operative Report ---
Post Operative Report Pre & Post Diagnosis Operation Date: 02/10/24 07:30 Pre-Op Diagnosis: 1. Term at 40 4/7 weeks 2. Previous section who desires 3. Default c/section Post-Op Diagnosis: Same I identified the patient and participated in the time-out.: Yes Procedure Operation Date: 02/10/24 07:30 Actual Procedures p Repeat Low Transverse Section with the of a live female child at 0824. - Danyelle Owen MD Surgeon Danyelle Owen MD Hearing Aid Repairer MD Raz Quantitative Blood Loss (QBL) 690 Findings Consistent with Post-Op Diagnosis Normal appearing uterus, bilateral fallopian tubes and ovaries on entry. Viable female with APGARs of 9 and 9 at 1 and 5 minutes, respectively. Hysterotomy noted to have inferior extension in the middle towards bladder but not involving it Specimens Placenta, cord blood Drains Cash draining clear urine Anesthesia Type Spinal Complications none Disposition Accompanied Patient To Recovery: Yes Disposition: L&D Indications 29 yo presented for default repeat CS Description of Procedure The patient was taken to the operating room after consents were ensured. The patient was properly identified. Spinal anesthesia was obtained without difficulty. The patient was placed in a dorsal supine position with left lateral tilt, then prepped and draped in normal sterile fashion. Surgical time out was performed. Antibiotics were given for prophylaxis. Anesthesia was tested to ensure adequate surgical levels. Pfannenstiel skin incision was performed and carried down to the underlying fascia with a knife. The fascia was then nicked in the midline and extended laterally with pickups and Olson scissors. Superior portion of the fascia was grasped with Kochers x2 and elevated off the underlying rectus muscles using blunt dissection. Inferior portion of the fascia was then grasped with Padma clamps x2 and also elevated off the underlying muscles with blunt dissection. Midline was identified. The peritoneum was then entered and extended to provide adequate room for delivery of baby. A hand was inserted into the abdomen, uterus was noted to be clear of adhesions. Bladder blade was inserted, bladder flap was created in the usual fashion. A low transverse uterine incision was made in the uterus and extended bluntly in a superior to inferior fashion. Amniotomy was made with clear fluid at the time of rupture. head was grasped and elevated through the hysterotomy in an atraumatic fashion. The baby delivered in JASON position, no nuchal cord. Remainder of the body delivered without incident. Nose and mouth were bulb suctioned on the surgical field. The cord was double cl amped and cut, baby was handed off to awaiting pediatrics staff. Cord segment and blood were obtained. Placenta was then expressed from the uterus. The uterus was exteriorized. Several passes were made inside the uterus to remove the remaining membranes. Attention was then turned to the hysterotomy, at which point inferior extension was noted. Inferior extension was repaired with a running locked stitch of 0 Vicryl to meet the remainder of the hysterotomy. Hysterotomy was then closed with a running locked suture of 0 Vicryl on a CTX needle. An imbricating layer was then performed using 0-Monocryl of the extension and the hysterotomy. Cash catheter remained clear during this time. There was noted to be good hemostasis. The posterior cul-de-sac was then inspected and cleaned of clot and debris. The hysterotomy was again inspected and noted to be hemostatic. The uterus was returned to the abdomen. The right and left pericolic gutters were cleaned of all clot and debris. The hysterotomy was again noted to be hemostatic. Space of Retzius was noted to be hemostatic. The fascia was then closed with a running suture of 0 Vicryl on a CT1 needle. Subcutaneous tissue was copiously irrigated and noted to be hemostatic. Subcutaneous tissue was re- approximated using 2-0 plain gut. The skin was then closed with a running suture of 3-0 Monocryl in a subcuticular fashion. At termination of the procedure, fundal pressure was applied and a moderate amount of lochia was expressed. Pressure dressing was applied to the patient. She tolerated the procedure well. All sponge, needle, instrument counts were correct x 2. I attest to the content of the Intraoperative Record and any orders documented therein. Any exceptions are noted below. OB Procedure Charges 44618
[2024-02-10] MEDS ORDERED: CALCIUM CARBONATE 500 MG CHEWABLE TAB PO PRN (09:51)
[2024-02-10] MEDS ORDERED: LACTATED RINGER'S 1,000 ML IV SCH (09:51)
[2024-02-10] MEDS ORDERED: SENNA 8.6 MG TAB PO PRN (09:51)
[2024-02-10] MEDS ORDERED: BENZOCAINE 20% SPRY 85 APPLN/85 GM CAN EXT PRN (09:51)
[2024-02-10] MEDS ORDERED: MAGNESIUM HYDROXIDE SUSP 30 ML UDC PO PRN (09:51)
[2024-02-10] MEDS ORDERED: HYDROCORTISONE ACETATE 25 MG SUPP PR PRN (09:51)
[2024-02-10] MEDS: DIPHTHER/TETAN/PERTUS Vaccine (Tdap, Adol/Adult) 0.5mL IM ONE (10:23)
--- NOTE | 2024-02-10 11:20 | Anesthesiology Progress Note ---
Date of Service February 10, 2024 Anesthesia Post Procedure Vital Signs Vital Signs: Temp Pulse Resp BP Pulse Ox 02/10/24 11:15 67 112/56 L 02/10/24 11:14 67 100 02/10/24 11:09 70 100 02/10/24 11:04 100 02/10/24 11:04 70 02/10/24 11:04 67 105/63 02/10/24 10:59 76 100 02/10/24 10:54 99 02/10/24 10:54 74 02/10/24 10:54 71 109/62 02/10/24 10:49 72 100 02/10/24 10:44 71 97/56 L 100 02/10/24 10:39 76 100 02/10/24 10:34 74 96/52 L 100 02/10/24 10:29 66 100 02/10/24 10:25 36.4 C L 18 02/10/24 10:24 99 02/10/24 10:24 76 02/10/24 10:24 82 102/51 L 02/10/24 10:19 70 99 02/10/24 10:15 75 108/57 L 02/10/24 10:14 73 98 02/10/24 10:10 80 94 02/10/24 10:09 79 94 02/10/24 10:04 76 98/55 L 97 02/10/24 09:59 97 02/10/24 09:59 71 02/10/24 09:59 74 93 02/10/24 09:54 97 02/10/24 09:54 71 02/10/24 09:54 70 99/56 L 02/10/24 09:49 71 97 02/10/24 09:44 68 107/56 L 97 02/10/24 09:39 86 97 02/10/24 09:38 79 92 02/10/24 09:35 73 115/57 L 02/10/24 09:34 82 93 02/10/24 09:29 69 99 02/10/24 09:24 71 100/54 L 98 02/10/24 05:40 36.7 C 20 02/10/24 05:38 85 114/76 Transfer of Care Handoff Completed per policy Notes Mental Status: alert / awake / arousable Patient Amnestic to Procedure: Yes Nausea / Vomiting: adequately controlled Pain: adequately controlled Airway Patency, RR, SpO2: stable & adequate BP & HR: stable & adequate Hydration State: stable & adequate Neuraxial Anesthesia: was administered and sensory block is resolving Anesthetic Complications: no major complications apparent and Pt Satisfied with anesthetic care
[2024-02-10] MEDS: OXYTOCIN 20 UNITS/LR 1,002 ML IV SCH (12:56)
[2024-02-10] MEDS: SIMETHICONE 80 MG CHEW PO SCH (13:57)
[2024-02-10] MEDS: ACETAMINOPHEN 325 MG TAB PO SCH (15:56)
[2024-02-10] MEDS: DOCUSATE SODIUM 100 MG CAP PO SCH (20:33)
[2024-02-11] MEDS ORDERED: PROMETHAZINE 12.5 MG/50.5 ML BAG IV PRN (02:28)
[2024-02-11] MEDS ORDERED: oxyCODONE HCL IR 5 MG TAB (IMMEDIATE RELEASE) PO PRN (02:28)
[2024-02-11] MEDS ORDERED: diphenhydrAMINE Capsule 25 MG CAP PO PRN (02:28)
[2024-02-11] MEDS ORDERED: HYDROmorphone INJ 0.5 MG/0.5 ML SYR IV PRN (02:28)
[2024-02-11] MEDS ORDERED: ONDANSETRON INJ 2 MG/ML 2 ML VIAL IV PRN (02:28)
[2024-02-11] MEDS ORDERED: diphenhydrAMINE 50 MG/ML VIAL IV PRN (02:28)
[2024-02-11 06:37] LABS: Basophils # (auto) 0.01 K/uL (0.00-0.20); Basophils % (auto) 0.1 %; Eosinophils # (auto) 0.04 K/uL (0.00-0.50); Eosinophils % (auto) 0.3 %; Hematocrit (blood only) 26.3 % (37.0-47.0); Hemoglobin 8.9 g/dl (12.0-16.0); Immature Granulocytes # (auto) 0.05 K/uL (0.01-0.20); Immature Granulocytes % (auto) 0.4 %; Mean Corpuscular Hemoglobin 29.7 pg (25.0-34.0); Mean Corpuscular Hgb Conc 33.8 g/dL (32.0-36.0); Mean Corpuscular Volume 87.7 fL (80.0-100.0); Mean Platelet Volume 11.8 fL (9.4-12.4); Monocytes # (auto) 0.85 K/uL (0.11-0.59); Neutrophils # (auto) 8.43 K/uL (1.40-6.50); Neutrophils % (auto) 69.2 %; Platelet Count 141 K/uL (130-400); RDW Coefficient of Variation 13.7 % (11.5-14.5); RDW Standard Deviation 43.8 fL (36.4-46.3); White Blood Count 12.18 K/ul (4.8-10.8)
[2024-02-11] MEDS: LEVOTHYROXINE SODIUM 75 MCG TABLET PO SCH (06:37)
[2024-02-11] MEDS: MoRPHine SULFATE PF 1 MG/ML 10 ML AMP/VIAL INT SPINAL ONE (07:22)
--- NOTE | 2024-02-11 08:26 | Obstetrical Progress Note ---
Date of Service February 11, 2024 Assessment & Plan (1) Encounter for care and examination after delivery: 29 [facility] -Meeting all pp milestones -A+/rubella immune/ -f/u 6 weeks for appt, continue routine care Subjective Ambulation: ambulating normally Voiding: no voiding problems Passing Gas:: Yes Diet Tolerance:: regular diet Lochia:: Small Pain well managed with medication Review of Systems Denies fevers, chills, n/v, BAR[place], CP, SOB Physical Exam Constitutional WD/WN, vitals as above no acute distress Respiratory normal respiratory effort, lungs clear to auscultation Cardiovascular RRR, no murmur, no edema Gastrointestinal (Abdomen) Percussion/Palpation: abdomen soft; abdomen nontender fundus firm at umbilicus and NT, dressing c/d/i Musculoskeletal BLE symmetric, nonerythematous, nontender Results & Data Vital Signs (Past 12 Hours) Vital Signs Temp Pulse Resp BP Pulse Ox Pulse Ox O2 Del Method 02/11/24 03:55 97.9 F 72 18 96/64 L 100 Room Air 02/11/24 02:47 16 95 02/11/24 01:50 18 96 02/11/24 01:00 18 98 02/10/24 23:40 98.4 F 78 18 100/65 100 Room Air 02/10/24 23:40 18 100 02/10/24 23:40 100 02/10/24 22:49 18 100 02/10/24 21:19 18 98 O2 Del Method 02/11/24 03:55 02/11/24 02:47 02/11/24 01:50 02/11/24 01:00 02/10/24 23:40 02/10/24 23:40 02/10/24 23:40 Room Air 02/10/24 22:49 02/10/24 21:19
[2024-02-11] MEDS: PRENATAL VITAMIN 1 TAB PO SCH (08:45)
[2024-02-11] MEDS: FERROUS SULFATE 325 MG TAB PO SCH (08:45)
[2024-02-11] MEDS ORDERED: KETOROLAC 30 MG/ML VIAL IV PRN (09:24)
[2024-02-11] MEDS: IBUPROFEN 600 MG TAB PO SCH (09:27)
[2024-02-11] MEDS: bisacodyL 5 MG TABEC PO SCH (20:15)
[2024-02-12 01:13] VITALS: O2SAT 97
--- NOTE | 2024-02-12 05:46 | Obstetrical Progress Note ---
Date of Service February 12, 2024 Assessment & Plan (1) Encounter for care and examination after delivery: Plan stable, ready for dc, instructions reviewed. plan 6wk pp check. rhpos, ri, breast. hgb noted, stable. declines pain med script. Day #:: 2 Subjective Ambulation: ambulating normally Voiding: no voiding problems Diet Tolerance:: regular diet Lochia:: Small Feeding Type:: breast feeding no pain issues. not using any narcotic and does not want sent. Physical Exam Constitutional WD/WN, vitals as above Respiratory normal respiratory effort, lungs clear to auscultation Cardiovascular Rate/Rhythm: regular rate and regular rhythm Gastrointestinal (Abdomen) Inspection/Auscultation: abdomen normal to inspection and + abdominal surgical incision (c/d/i some bruising) Percussion/Palpation: abdomen soft Fundus firm 2cm down Musculoskeletal nt calves no edema Neurologic grossly normal Psychiatric A+Ox3, euthymic affect Results & Data Vital Signs (Past 12 Hours) Vital Signs Temp Pulse Resp BP Pulse Ox O2 Del Method 02/11/24 23:58 97.9 F 80 18 114/72 97 Room Air 02/11/24 20:10 98.2 F 90 18 104/65 99 Room Air
[2024-02-12 06:43] LABS: Hematocrit (blood only) 24.8 % (37.0-47.0); Hemoglobin 8.4 g/dl (12.0-16.0)
[2024-02-12 07:23] VITALS: BP 136/84; PULSE 85; RESP 16; TEMP 97.7
[2024-02-12] MEDS ORDERED: IBUPROFEN 600 MG TAB PO PRN (09:24)
[2024-02-12] MEDS ORDERED: bisacodyL 10 MG SUPP PR PRN (09:24)
[2024-02-12] MEDS ORDERED: ACETAMINOPHEN 325 MG TAB PO PRN (15:24)
== END 2024-02-12 13:30 | disposition home or self-care (01) | DRG 788 ==
LOC: 4S1 05:30 → EDSTATUS 07:30 → 4E2 12:00